=== PATIENT | male | born 1990 | race Caucasian/White ===

== ENCOUNTER 2020-11-22 23:00 | Inpatient (IN) | payer BC ==
[2020-11-22 23:36] VITALS: BMI 26.6
[2020-11-23] MEDS ORDERED: LORazepam 1 MG TABLET PO PRN (00:30)
[2020-11-23] MEDS ORDERED: LORazepam 2 MG TABLET PO ONE (00:30)
[2020-11-23] MEDS ORDERED: IBUPROFEN 400 MG TABLET (FP) PO PRN (00:30)
[2020-11-23] MEDS ORDERED: ONDANSETRON *ODT* 4 MG TABLET SL PRN (00:30)
[2020-11-23] MEDS ORDERED: BISMUTH SUBSALICYLATE 524 MG/30 ML PO PRN (00:30)
[2020-11-23] MEDS ORDERED: METHOCARBAMOL 500 MG TABLET PO PRN (00:30)
[2020-11-23] MEDS ORDERED: MAGNESIUM CITRATE 300 ML BOTTLE PO PRN (00:30)
[2020-11-23] MEDS ORDERED: MAG HYDROX/AL HYDROX/SIMETH 30 ML UNIT-DOSE CUP PO PRN (00:30)
[2020-11-23] MEDS ORDERED: ACETAMINOPHEN 325 MG TABLET (FP) PO PRN ×2 (00:30)
[2020-11-23] MEDS ORDERED: MAGNESIUM HYDROX 2400MG/30ML ORAL SUSPENSION 30 ML CUP PO PRN (00:30)
[2020-11-23] MEDS ORDERED: MELATONIN 5 MG TABLETS PO PRN (00:30)
[2020-11-23] MEDS ORDERED: MENTHOL/PHENOL 1 EACH UD MM PRN (00:30)
[2020-11-23] MEDS ORDERED: QUEtiapine FUMARATE 100 MG TABLET (FP) PO ONE (00:39)
[2020-11-23] MEDS ORDERED: cloNIDine HCL 0.1 MG TABLET PO ONE (00:43)
[2020-11-23] MEDS ORDERED: cloNIDine HCL 0.1 MG TABLET ONE (00:55)
[2020-11-23] MEDS ORDERED: METHOCARBAMOL 500 MG TABLET ONE (00:56)
[2020-11-23] MEDS ORDERED: LORazepam 2 MG TABLET ONE ×2 (05:40→10:47)
[2020-11-23] MEDS: LORazepam 2 MG TABLET PO SCH ×3 (05:48→17:54)
[2020-11-23] MEDS ORDERED: PRENATAL VITAMINS W/ FOLIC ACID TABLET (FP) PO SCH (10:00)
[2020-11-23 11:24] LABS: HIV INTERPRETATION NEGATIVE (NEGATIVE)
[2020-11-23 13:43] VITALS: TEMP 96.9
[2020-11-23 15:53] LABS: CALCIUM 8.4 mg/dL (8.5-10.1)
[2020-11-23 15:54] LABS: ALBUMIN 3.3 g/dl (3.4-5.0); BLOOD UREA NITROGEN 21.8 mg/dL (7-18)
[2020-11-23 15:55] LABS: HEMATOCRIT 38.4 % (35.4-49); HEMOGLOBIN 13.2 GM/dL (11.7-16.9); MCH 32.3 pg (25.7-33.7); MCHC 34.4 g/dl (32.0-35.9); MEAN CELL VOLUME 93.7 fl (80-96); MEAN PLT VOLUME 8.5 fl (7.5-11.1); PLATELET COUNT 169 10^3/uL (134-434); RBC 4.09 M/mm3 (4.00-5.60); RDW 14.3 % (11.9-15.9); WHITE BLOOD COUNT 4.6 K/mm3 (4.0-10.0)
[2020-11-23 15:57] LABS: CREATININE 1.1 mg/dL (0.55-1.3)
[2020-11-23 15:59] LABS: BILIRUBIN,TOTAL 0.5 mg/dL (0.2-1); TOT PROT 5.9 g/dl (6.4-8.2)
[2020-11-23 18:31] VITALS: BP 140/75; PULSE 60
[2020-11-23] MEDS ORDERED: THIAMINE HCL 100 MG TABLET (FP) PO SCH (22:00)
[2020-11-23] MEDS ORDERED: QUEtiapine FUMARATE 200 MG TABLET PO SCH (22:00)
[2020-11-24] MEDS ORDERED: LORazepam 1 MG TABLET PO SCH (05:00)
[2020-11-25] MEDS ORDERED: LORazepam 0.5 MG TABLET PO PRN
[2020-11-25] MEDS ORDERED: LORazepam 0.5 MG TABLET PO SCH (05:00)
[2020-11-26] MEDS ORDERED: LORazepam 0.5 MG TABLET PO ONE (05:00)
== END 2020-11-23 19:00 | disposition left against medical advice (07) | DRG 770 ==
LOC: YASAS 23:00 → Y3N 11-23 10:44
PROVIDERS: ADMIT Allergy & Immunology; ATTEND Allergy & Immunology
PROC: HZ2ZZZZ Detoxification Services for Substance Abuse Treatment (ICD-10-PCS; principal; 2020-11-23)
DX: F10.230 Alcohol dependence with withdrawal, uncomplicated (principal); F12.20 Cannabis dependence, uncomplicated; I10 Essential (primary) hypertension; K21.9 Gastro-esophageal reflux disease without esophagitis; M54.6 Pain in thoracic spine; G89.29 Other chronic pain; G47.00 Insomnia, unspecified; Z87.891 Personal history of nicotine dependence
CPT/HCPCS: 36415; 80053; 85027; 86780; 87389; J0735

== ENCOUNTER 2021-10-19 17:27 | Inpatient (IN) | payer BC ==
[2021-10-19 21:41] VITALS: BMI 29.7
[2021-10-19] MEDS ORDERED: P-EPHED 60MG/TRIPROLIDI 2.5MG TABLET PO PRN (23:39)
[2021-10-19] MEDS ORDERED: ONDANSETRON *ODT* 4 MG TABLET SL PRN (23:39)
[2021-10-19] MEDS ORDERED: ACETAMINOPHEN 325 MG TABLET (FP) PO PRN ×2 (23:39)
[2021-10-19] MEDS ORDERED: NICOTINE 10 MG CARTRIDGE (INHALER) IH PRN (23:39)
[2021-10-19] MEDS ORDERED: guaiFENesin 200 MG/10 ML 10 ML UNIT-DOSE CUPS PO PRN (23:39)
[2021-10-19] MEDS ORDERED: IBUPROFEN 400 MG TABLET (FP) PO PRN (23:39)
[2021-10-19] MEDS ORDERED: MAGNESIUM HYDROX 2400MG/30ML ORAL SUSPENSION 30 ML CUP PO PRN (23:39)
[2021-10-19] MEDS ORDERED: IBUPROFEN 600 MG TABLET (FP) PO PRN (23:39)
[2021-10-19] MEDS ORDERED: MAGNESIUM CITRATE 300 ML BOTTLE PO PRN (23:39)
[2021-10-19] MEDS ORDERED: NICOTINE POLACRILEX 2 MG GUM BUC PRN (23:39)
[2021-10-19] MEDS ORDERED: DICYCLOMINE HCL 10 MG CAPSULE PO PRN (23:39)
[2021-10-19] MEDS ORDERED: BISMUTH SUBSALICYLATE 524 MG/30 ML PO PRN (23:39)
[2021-10-19] MEDS ORDERED: LOPERAMIDE HCL 2 MG CAPSULE PO PRN (23:39)
[2021-10-19] MEDS ORDERED: BENZOCAINE/MENTHOL (CHLORASEPTIC ) LOZENGE MM PRN (23:39)
[2021-10-19] MEDS ORDERED: MAG HYDROX/AL HYDROX/SIMETH 30 ML UNIT-DOSE CUP PO PRN (23:39)
[2021-10-19] MEDS ORDERED: chlordiazePOXIDE HCL 25 MG CAPSULE PO PRN (23:42)
[2021-10-20] MEDS: METHOCARBAMOL 500 MG TABLET PO PRN ×3 (02:23→22:50)
[2021-10-20] MEDS: hydrOXYzine PAMOATE 25 MG CAPSULE (FP) PO PRN ×2 (02:23→18:12)
[2021-10-20] MEDS: chlordiazePOXIDE HCL 25 MG CAPSULE PO SCH ×5 (02:28→22:47)
[2021-10-20] MEDS: PRENATAL VITAMINS W/ FOLIC ACID TABLET (FP) PO SCH (10:21)
[2021-10-20 14:50] LABS: HEMATOCRIT 39.9 % (35.4-49); HEMOGLOBIN 14.1 GM/dL (11.7-16.9); MCH 31.5 pg (25.7-33.7); MCHC 35.2 g/dl (32.0-35.9); MEAN CELL VOLUME 89.4 fl (80-96); MEAN PLT VOLUME 8.6 fl (7.5-11.1); PLATELET COUNT 216 10^3/uL (134-434); RBC 4.46 M/mm3 (4.00-5.60); RDW 13.6 % (11.9-15.9)
[2021-10-20 15:05] LABS: BLOOD UREA NITROGEN 22.6 mg/dL (7-18); CALCIUM 8.6 mg/dL (8.5-10.1)
[2021-10-20 15:06] LABS: ALBUMIN 3.5 g/dl (3.4-5.0)
[2021-10-20 15:09] LABS: CREATININE 0.9 mg/dL (0.55-1.3)
[2021-10-20 15:10] LABS: BILIRUBIN,TOTAL 0.7 mg/dL (0.2-1); TOT PROT 6.5 g/dl (6.4-8.2)
[2021-10-20] MEDS: GABAPENTIN 100 MG CAPSULE PO SCH (22:46)
[2021-10-20] MEDS: THIAMINE HCL 100 MG TABLET (FP) PO SCH (22:46)
[2021-10-20] MEDS: MELATONIN 5 MG TABLETS PO SCH (22:46)
[2021-10-20] MEDS: DIVALPROEX SODIUM 500 MG TABLET E.C. PO SCH (22:46)
[2021-10-20] MEDS: OLANZapine 10 MG TABLET PO SCH (22:46)
[2021-10-21] MEDS: chlordiazePOXIDE HCL 25 MG CAPSULE PO SCH ×4 (05:52→23:21)
[2021-10-21] MEDS: METHOCARBAMOL 500 MG TABLET PO PRN ×3 (05:53→17:48)
[2021-10-21] MEDS: GABAPENTIN 100 MG CAPSULE PO SCH ×2 (10:33→23:21)
[2021-10-21] MEDS: PRENATAL VITAMINS W/ FOLIC ACID TABLET (FP) PO SCH (10:33)
[2021-10-21] MEDS: DIVALPROEX SODIUM 500 MG TABLET E.C. PO SCH ×2 (10:33→23:21)
[2021-10-21] MEDS: hydrOXYzine PAMOATE 25 MG CAPSULE (FP) PO PRN (17:50)
[2021-10-21] MEDS: THIAMINE HCL 100 MG TABLET (FP) PO SCH (23:21)
[2021-10-21] MEDS: MELATONIN 5 MG TABLETS PO SCH (23:21)
[2021-10-21] MEDS: OLANZapine 10 MG TABLET PO SCH (23:21)
[2021-10-22] MEDS ORDERED: chlordiazePOXIDE HCL 10 MG CAPSULE PO PRN
[2021-10-22] MEDS: chlordiazePOXIDE HCL 10 MG CAPSULE PO SCH ×4 (05:08→22:27)
[2021-10-22] MEDS: METHOCARBAMOL 500 MG TABLET PO PRN ×3 (05:09→17:43)
[2021-10-22] MEDS: CEPHALEXIN MONOHYDRATE 500 MG CAPSULE (UD) PO SCH ×2 (10:20→22:26)
[2021-10-22] MEDS: DIVALPROEX SODIUM 500 MG TABLET E.C. PO SCH ×2 (10:20→22:26)
[2021-10-22] MEDS: PRENATAL VITAMINS W/ FOLIC ACID TABLET (FP) PO SCH (10:20)
[2021-10-22] MEDS: GABAPENTIN 100 MG CAPSULE PO SCH ×2 (10:20→22:26)
[2021-10-22] MEDS: hydrOXYzine PAMOATE 25 MG CAPSULE (FP) PO PRN (17:43)
[2021-10-22] MEDS: OLANZapine 10 MG TABLET PO SCH (22:26)
[2021-10-22] MEDS: MELATONIN 5 MG TABLETS PO SCH (22:26)
[2021-10-22] MEDS: THIAMINE HCL 100 MG TABLET (FP) PO SCH (22:26)
[2021-10-23] MEDS: chlordiazePOXIDE HCL 10 MG CAPSULE PO SCH ×2 (06:10→18:04)
[2021-10-23] MEDS: METHOCARBAMOL 500 MG TABLET PO PRN ×3 (06:11→22:03)
[2021-10-23] MEDS: DIVALPROEX SODIUM 500 MG TABLET E.C. PO SCH ×2 (10:36→22:03)
[2021-10-23] MEDS: PRENATAL VITAMINS W/ FOLIC ACID TABLET (FP) PO SCH (10:36)
[2021-10-23] MEDS: CEPHALEXIN MONOHYDRATE 500 MG CAPSULE (UD) PO SCH ×2 (10:36→22:03)
[2021-10-23] MEDS: GABAPENTIN 100 MG CAPSULE PO SCH ×2 (10:36→22:03)
[2021-10-23] MEDS: OLANZapine 10 MG TABLET PO SCH (22:03)
[2021-10-23] MEDS: hydrOXYzine PAMOATE 25 MG CAPSULE (FP) PO PRN (22:03)
[2021-10-23] MEDS: MELATONIN 5 MG TABLETS PO SCH (22:04)
[2021-10-23] MEDS: THIAMINE HCL 100 MG TABLET (FP) PO SCH (22:04)
[2021-10-24] MEDS ORDERED: chlordiazePOXIDE HCL 10 MG CAPSULE PO ONE (05:00)
[2021-10-24] MEDS: METHOCARBAMOL 500 MG TABLET PO PRN ×2 (05:38→23:39)
[2021-10-24] MEDS: GABAPENTIN 100 MG CAPSULE PO SCH ×2 (10:13→22:45)
[2021-10-24] MEDS: PRENATAL VITAMINS W/ FOLIC ACID TABLET (FP) PO SCH (10:13)
[2021-10-24] MEDS: CEPHALEXIN MONOHYDRATE 500 MG CAPSULE (UD) PO SCH ×2 (10:13→22:46)
[2021-10-24] MEDS: DIVALPROEX SODIUM 500 MG TABLET E.C. PO SCH ×2 (10:13→22:46)
[2021-10-24] MEDS: hydrOXYzine PAMOATE 25 MG CAPSULE (FP) PO PRN (22:45)
[2021-10-24] MEDS: THIAMINE HCL 100 MG TABLET (FP) PO SCH (22:46)
[2021-10-24] MEDS: MELATONIN 5 MG TABLETS PO SCH (22:46)
[2021-10-24] MEDS: OLANZapine 10 MG TABLET PO SCH (22:46)
[2021-10-25] MEDS: BACITRACIN 0.9 GM PACKET TP SCH ×2 (00:18→10:31)
[2021-10-25 09:21] VITALS: BP 128/67; PULSE 80; TEMP 97.9
[2021-10-25] MEDS: GABAPENTIN 100 MG CAPSULE PO SCH (10:29)
[2021-10-25] MEDS: PRENATAL VITAMINS W/ FOLIC ACID TABLET (FP) PO SCH (10:29)
[2021-10-25] MEDS: DIVALPROEX SODIUM 500 MG TABLET E.C. PO SCH (10:30)
[2021-10-25] MEDS: CEPHALEXIN MONOHYDRATE 500 MG CAPSULE (UD) PO SCH (10:30)
== END 2021-10-25 11:10 | disposition home or self-care (01) | DRG 773 ==
LOC: YASAS 17:27 → Y3N 10-20 01:43
PROVIDERS: ADMIT Allergy & Immunology; ATTEND Surgery
PROC: HZ2ZZZZ Detoxification Services for Substance Abuse Treatment (ICD-10-PCS; principal; 2021-10-20)
DX: F10.230 Alcohol dependence with withdrawal, uncomplicated (principal); F11.20 Opioid dependence, uncomplicated; F14.20 Cocaine dependence, uncomplicated; F15.10 Other stimulant abuse, uncomplicated; F12.20 Cannabis dependence, uncomplicated; F17.210 Nicotine dependence, cigarettes, uncomplicated; F31.9 Bipolar disorder, unspecified; F19.24 Other psychoactive substance dependence with psychoactive substance-induced mood disorder; I10 Essential (primary) hypertension; K21.9 Gastro-esophageal reflux disease without esophagitis; L02.31 Cutaneous abscess of buttock; M54.6 Pain in thoracic spine; G89.29 Other chronic pain; S90.812A Abrasion, left foot, initial encounter; W22.8XXA Striking against or struck by other objects, initial encounter; Y92.238 Other place in hospital as the place of occurrence of the external cause
CPT/HCPCS: 36415; 80053; 80164; 85027; 86780; C9803-CS; U0003; U0005